=== PATIENT | male | born 1955 | race Caucasian/White ===

== ENCOUNTER → 2024-05-15 | Day surgery (SDC) | payer MEDICARE ==
[~2024-05-15] MED LIST: Lidocaine 2% 100 MG/5 ML Syringe IVPUSH ONE; Propofol 200 MG/20 ML SDV IV ONE; Sodium Chloride 0.9% 10 ML Syringe FLUSH PRN
[2024-05-15] MEDS: Lactated Ringers 1,000 ML IV SCH (07:08)
[2024-05-15] MEDS: Simethicone Drops 40 MG/0.6 ML 30 ML Bottle ONE (07:39)
== END ==
LOC: FB.SDS 06:14
PROVIDERS: ATTEND Surgery
DX: Z12.11 Encounter for screening for malignant neoplasm of colon (principal); Z86.0101 Personal history of adenomatous and serrated colon polyps
CPT/HCPCS: 00811; 88305; A9270-GY; J2704; J7120